=== PATIENT | male | born 1995 | race Caucasian/White ===

== ENCOUNTER 2025-01-11 18:35 | Emergency (ER) | payer SELFPAY ==
[~2025-01-11] VITALS: Ht 175.3 cm; Wt 118.1 kg
[2025-01-11 19:22] VITALS: BP 155/104; PULSE 94; RESP 20; O2SAT 95
[2025-01-11] MEDS: LIDOcaine 1% W/epiNEPHrine 1:100,000 20ml vial IJ ONE (22:18)
[2025-01-11] MEDS ORDERED: CEPH-585 PO (23:12)
[2025-01-11 23:21] VITALS: TEMP 97.9
== END 2025-01-11 23:26 | disposition home or self-care (01) ==
LOC: ER 18:35
DX: S91.312A Laceration without foreign body, left foot, initial encounter (principal); F41.9 Anxiety disorder, unspecified; F32.A Depression, unspecified; W22.8XXA Striking against or struck by other objects, initial encounter; Y93.89 Activity, other specified; Y92.89 Other specified places as the place of occurrence of the external cause; Y99.8 Other external cause status
CPT/HCPCS: 12001; 73610; 73630; 99284; A6253; A6258; A6446; A6449